=== PATIENT | female | born 1965 | race Caucasian/White ===

== ENCOUNTER 2017-09-26 14:46 | Emergency (ER) | payer OTHER ==
[~2017-09-26] VITALS: Ht 167.6 cm; Wt 59.0 kg
[2017-09-26] MEDS ORDERED: LEVSOD100 PO (14:58)
[2017-09-26] MEDS ORDERED: Ultram50 MG PO (16:01)
[2017-09-26] MEDS ORDERED: ONDA4ODT MM (16:01)
== END 2017-09-26 16:05 | disposition home or self-care (01) ==
LOC: ER 14:46
DX: S52.502A Unspecified fracture of the lower end of left radius, initial encounter for closed fracture (principal); S63.501A Unspecified sprain of right wrist, initial encounter; Z88.5 Allergy status to narcotic agent; Z79.899 Other long term (current) drug therapy; W19.XXXA Unspecified fall, initial encounter
CPT/HCPCS: 29125; 73110; 73130; 99283; L3917